=== PATIENT | female | born 1965 | race Caucasian/White ===

== ENCOUNTER 2016-11-04 18:06 | Emergency (ER) | payer OTHER ==
[~2016-11-04] VITALS: Wt 63.6 kg
[~2016-11-04 18:06] MED LIST: ALBU18HF IH; BECL8.7A5 IH; OMEP20CA16 PO
[2016-11-04] MEDS ORDERED: ONDANSETRON 4 MG INJ IV STA (20:51)
[2016-11-04] MEDS ORDERED: SOD CHLORIDE 0.9% 500 ML IV ONE (21:00)
[2016-11-04 21:39] LABS: ADD SCAN DIFF NO
[2016-11-04 21:41] LABS: BASOPHILS % 0.7 % (0.0-2.0); EOSINOPHILS # 0.1 10^3/ul (0.0-0.5); EOSINOPHILS % 1.5 % (0.0-7.0); HEMATOCRIT 42.7 % (37.0-47.0); HEMOGLOBIN 14.1 g/dl (12.0-16.0); LYMPHOCYTES # 1.7 10^3/ul (0.8-2.9); LYMPHOCYTES % 27.7 % (15.0-51.0); MEAN CORPUSCULAR VOLUME 87.9 fl (82.0-101.0); MEAN PLATELET VOLUME 10.7 fl (7.4-10.4); MONOCYTE # 0.3 10^3/ul (0.3-0.9); MONOCYTES % 4.4 % (0.0-11.0); NEUTROPHILS % 65.5 % (39.0-77.0); PLATELET COUNT 295 10^3/UL (140-415); RED BLOOD COUNT 4.86 10^6/ul (4.20-5.40); RED CELL DISTRIBUTION WIDTH 13.5 % (11.5-14.5); WHITE BLOOD COUNT 6.1 10^3/ul (4.8-10.8)
[2016-11-04 21:52] LABS: ALBUMIN 3.9 g/dl (3.3-4.9); POTASSIUM 3.9 mmol/L (3.5-5.1)
[2016-11-04 21:54] LABS: BILIRUBIN,INDIRECT 0.1 mg/dl (0-1.1); BILIRUBIN,TOTAL 0.1 mg/dl (0.2-1.3); CREATININE 0.54 mg/dl (0.44-1.00)
[2016-11-04 21:55] LABS: ALBUMIN/GLOBULIN RATIO 1.21; CALCIUM 8.7 mg/dl (8.4-10.2); TOTAL PROTEIN 7.1 g/dl (6.1-8.1)
[2016-11-04] MEDS ORDERED: IOHEXOL 300MG/ML 150 ML BTL ONE (22:16)
[2016-11-04] MEDS ORDERED: SOD CHLORIDE 0.9% 100 ML ONE (22:16)
--- NOTE | 2016-11-04 23:00 | RADRPT ---
PROCEDURE: CT abdomen and pelvis with contrast. CLINICAL INDICATION: Pain. TECHNIQUE: CT of the abdomen/pelvis was performed utilizing axial images with reconstructions in s agittal and coronal planes following the intravenous administration of 90 cc Omnipaque 300 contrast. The administered radiation dose is CTDI 8.5 mGy, DLP 451.1 mGy-cm. COMPARISON: No pertinent prior examinations were submitted for comparison. FINDINGS: Visualized Chest: The visualized lung bases are clear. Abdomen: The spleen, pancreas, kidneys and adrenal glands are unremarkable. There is a partially exophytic h ypoattenuating lesion off of the anterior aspect of the right hepatic lobe near the gallbladder ginger a, likely a cyst or hemangioma. Prior cholecystectomy is noted. There is no evidence of bowel obstruction. The appendix is normal. No intra-abdominal free air is seen. There is no evidence of intra-abdominal adenopathy or free fluid. Pelvis: There is no evidence of pelvic adenopathy. The uterus and ovaries are without enlargement. The uri nary bladder is unremarkable. There is no pelvic free fluid. Osseous structures: Unremarkable. IMPRESSION: No acute findings. Normal appendix. RPTAT: HIKT .Aidan Long MD, MD Date Time Electronically viewed and signed by .Aidan Long MD, on 11/04/2016 23:00 .T/
--- NOTE | 2016-11-04 23:38 | ERD ---
ER Documentation Chief Complaint Date/Time DATE: 11/04/16 TIME: 23:24 Chief Complaint RECTAL PAIN FROM HEMMRHOIDS INTERMITTENT FOR 1 MO, NO BLEEDING. Nurse practitioner reassess chief complaint with music store manager application on phone. Patient denies any history of hemorrhoids or hemorrhoid pain. Patient reports she feels pain in her rectum. HPI Pleasant Congolese-speaking 51-year-old female presenting to emergency department with reports of right l sided abdominal pain both upper and lower, right-sided back pain. Patient reports rectal pain. Symptoms have been progressive over the last 4 weeks. She denies any injury, or known causative event, denies injury. Patient reports cholecystectomy, appendix was not removed at that time. Patient denies dysuria, hematuria, rectal bleeding. History of hemorrhoids. Patient denies constipation, diarrhea, nausea, vomiting, fever, or chills, patient denies chest pain, shortness breath, palpitations, or dizziness. ROS All systems reviewed and are negative except as per history of present illness. Medications Home Meds Active Scripts Ibuprofen* (Motrin*) 600 Mg Tab, 600 MG PO Q6, #30 TAB Prov:NIVIA KNUTSON 11/05/16 Reported Medications Albuterol Sulfate* (Ventolin HFA*) 18 Gm Hfa.aer.ad, 18 GM IH Y 04/13/12 Beclomethasone Dip* (Qvar 80*) 7.3 Gm Inha, 7.3 GM IH Y 04/13/12 Omeprazole* (Omeprazole*) 20 Mg Capsule.dr, 20 MG PO DAILY 04/13/12 Allergies Allergies: Coded Allergies: Penicillins (Verified Allergy, Mild, NERVOUS, 04/13/12) PMhx/Soc History of Surgery: Yes (APPENDICITIS, RECTAL POLYPS) Anesthesia Reaction: No Hx Neurological Disorder: No Hx Respiratory Disorders: Yes (asthma) Hx Cardiac Disorders: No Hx Psychiatric Problems: No Hx Miscellaneous Medical Probl: Yes (H PYLORI ) Hx Alcohol Use: No Hx Substance Use: No Hx Tobacco Use: No Smoking Status: Never smoker Physical Exam Vitals Vital Signs Date Time Temp Pulse Resp B/P Pulse Ox O2 Delivery O2 Flow Rate FiO2 11/05/16 01:04 98.5 77 16 121/61 99 Room Air 11/04/16 18:15 98.9 90 21 139/78 100 Vitals stable, nursing notes reviewed Physical Exam Const: Patient in obvious discomfort, side lying with legs curled to the chest. Rubbing the right lower quadrant. Head: Atraumatic Eyes: Conjunctiva clear, no jaundice, pupils equal round reactive to light and accommodation, positive PERRLA ENT: Normal External Ears, Nose and Mouth. Oral mucosa moist, Neck: Full range of motion..~ No meningismus. Resp: Clear to auscultation bilaterally Cardio: Regular rate and rhythm, no murmurs Abd: Soft, psoas sign positive, right upper quadrant tender to palpation ( cholecystectomy) no epigastric tenderness, right abdominal upper and lower quadrant normal to palpation, negative CVA tenderness Skin: No petechiae or rashes Back: No midline or flank tenderness Rectal: Normal tone, No mass, lesion, ulcer, or hemorrhoid, Positive control Stool: Brown Guaiac: Negative Ext: No cyanosis, or edema Neur: Awake and alert Psych: Normal Mood and Affect Result Diagram: 11/04/16202511/04/162025 Results 24 hrs Laboratory Tests Test 11/04/16 20:26 Activated Partial Thromboplast Time 26.6Sec Alanine Aminotransferase (ALT/SGPT) 29IU/L Albumin 3.9g/dl Albumin/Globulin Ratio 1.21 Alkaline Phosphatase 97IU/L Anion Gap 15 Aspartate Amino Transf (AST/SGOT) 17IU/L Basophils # 0.010^3/ul Basophils % 0.7% Blood Urea Nitrogen 8mg/dl Calcium Level 8.7mg/dl Carbon Dioxide Level 29mmol/L Chloride Level 105mmol/L Creatinine 0.54mg/dl Direct Bilirubin 0.00mg/dl Eosinophils # 0.110^3/ul Eosinophils % 1.5% Globulin 3.20g/dl Glucose Level 83mg/dl Hematocrit 42.7% Hemoglobin 14.1g/dl Indirect Bilirubin 0.1mg/dl Lipase 206U/L Lymphocytes # 1.710^3/ul Lymphocytes % 27.7% Mean Corpuscular Hemoglobin 29.0pg Mean Corpuscular Hemoglobin Concent 33.0g/dl Mean Corpuscular Volume 87.9fl Mean Platelet Volume 10.7fl Monocytes # 0.310^3/ul Monocytes % 4.4% Neutrophils # 4.010^3/ul Neutrophils % 65.5% Nucleated Red Blood Cells # 0.010^3/ul Nucleated Red Blood Cells % 0.0/100WBC Platelet Count 39905^3/UL Potassium Level 3.9mmol/L Red Blood Count 4.8610^6/ul Red Cell Distribution Width 13.5% Sodium Level 145mmol/L Total Bilirubin 0.1mg/dl Total Protein 7.1g/dl Urine Bacteria RARE Urine Bilirubin NEGATIVE Urine Clarity CLEAR Urine Color LT. YELLOW Urine Glucose NEGATIVE% Urine Hemoglobin 2+ Urine Ketones NEGATIVE Urine Leukocyte Esterase NEGATIVE Urine Microscopic RBC 5-10/HPF Urine Microscopic WBC 0-2/HPF Urine Nitrite NEGATIVE Urine Specific [place] 1.010 Urine Squamous Epithelial Cells OCCASIONAL Urine Total Protein NEGATIVE Urine Urobilinogen 0.2 E.U./dL Urine pH 6.0 White Blood Count 6.110^3/ul Current Medications Medications (Trade) Dose Ordered Sig/Robert Route PRN Reason Start Time Stop Time Status Last Admin Dose Admin Sodium Chloride (NS) 500 ml @ 500 mls/hr Q1H ONCE IV 11/04/16 21:00 11/04/16 21:59 DC 11/04/16 21:25 Ondansetron HCl (Zofran Inj) 4 mg ONCE STAT IV 11/04/16 20:51 11/04/16 21:01 DC 11/04/16 21:24 IV Flush 10 ml 10 ml STK-MED ONCE .ROUTE 11/04/16 22:16 11/04/16 22:17 DC 11/04/16 22:31 Sodium Chloride (NS) 100 ml @ ud STK-MED ONCE .ROUTE 11/04/16 22:16 11/04/16 22:17 DC 11/04/16 22:31 Iohexol (Omnipaque 300mg/ ml) 150 ml STK-MED ONCE .ROUTE 11/04/16 22:16 11/04/16 22:17 DC 11/04/16 22:31 Interpretation text CBC shows no evidence of acute infectious process or acute hemorrhage. CMP shows no electrolyte imbalance, no renal injury, liver enzymes normal Lipase normal Protimes normal Urinalysis without WBCs or leukocytes, microscopic hematuria seen. Urinalysis essentially normal. Procedures/MDM CAT scan of abdomen and pelvis with contrast, findings; (copy from radiology report) Visualized chest; the visualized lung bases are clear, Abdomen; the spleen, pancreas, kidneys, adrenal glands are all unremarkable. There is a partially exophytic hypoattenuating lesion off to the anterior aspect of the right hepatic lobe near the gallbladder fossa, likely a cyst or hemangioma, prior cystectomy noted. There is no obvious bowel obstruction. The appendix is normal. No intra- abdominal free air is seen. There is no evidence of intra-abdominal adenopathy or free fluid. Pelvis; There is no evidence of pelvic adenopathy. The uterus and ovaries are without enlargement. The urinary bladder is unremarkable. There is no pelvic free fluid. Osseous structures. Unremarkable Impression; No acute findings. Normal appendix. I feel the patient is stable for discharge at this time. I have found no evidence of bacterial infection or appendicitis, CAT scan of abdomen and pelvis is normal without dysfunction. Small liver cysts or hemangioma present without evidence of fluid low suspicion that secondary finding is because of patient's pain today. Rectal exam normal without occult blood. GI bleed is not suspected at this time, ulcer, or hemorrhoids. I have discussed results, examination findings, the treatment plan with the patient and family present prior to discharge. Patient appears comfortable after pain medication, hospital music store manager provided. Indications for emergent reevaluation, side effects of medication were also discussed. Patient is discharged home with ibuprofen instructed to follow-up with primary care physician evaluation if pain persists. All questions were answered. Patient verbalizes understanding and agrees with plan of care. Case discussed with NIVIA Barroso Nov 04, 2016 23:37
[2016-11-04 23:39] LABS: ADD UMIC YES; URINE BILIRUBIN (Dip) NEGATIVE (NEGATIVE); URINE BLOOD (Dip) 2+ (NEGATIVE); URINE COLOR LT. YELLOW (YELLOW); URINE GLUCOSE (Dip) NEGATIVE (NEGATIVE); URINE KETONES (Dip) NEGATIVE (NEGATIVE); URINE LEUKOCYTE ESTERASE (Dip) NEGATIVE (NEGATIVE); URINE NITRITE (Dip) NEGATIVE (NEGATIVE); URINE TOTAL PROTEIN (Dip) NEGATIVE (NEGATIVE); URINE UROBILINOGEN (Dip) 0.2 E.U./dL (0.1-1.0)
[2016-11-05] MEDS ORDERED: IBUP-1542 PO (00:30)
[2016-11-05 01:04] VITALS: BP 121/61; PULSE 77; RESP 16; TEMP 98.5
[2016-11-05 01:10] LABS: BACTERIA,URINE RARE; SQUAMOUS EPITHELIAL CELL,UR OCCASIONAL
== END 2016-11-05 01:05 | disposition home or self-care (01) ==
LOC: FTE 18:06
DX: R10.11 Right upper quadrant pain (principal); J45.909 Unspecified asthma, uncomplicated
CPT/HCPCS: 74177; 80053; 81001; 83690; 85025; 85730; 96374; J2405; J7040; Q9967; Z7502; Z7610; 81003